=== PATIENT | female | born 1950 | race African-American/Black ===

== ENCOUNTER 2018-08-13 18:08 | Emergency (ER) | payer OTHER ==
[~2018-08-13] VITALS: Ht 172.7 cm; Wt 98.0 kg
[~2018-08-13 18:08] MED LIST: ATENOLOL PO; ATOR20TA65 PO; BENZONATE PO; BUSPIRONE PO; FLUOXETINE PO; FURO40TA5 PO; HYDR-1348 PO; HYDR-4005 PO; KDUR20 PO; LOV40 SQ; METO25TA6 PO; OMEP40CA34 PO; PRAMIPEXOLE PO; PREG50CA PO; VITAMIN D3 PO; WARFARIN PO; ZOLP10TA6 PO
[2018-08-13] MEDS ORDERED: DIAZEPAM 5 MG TABLET PO ONE (21:00)
[2018-08-13] MEDS ORDERED: KETOROLAC 30MG/ML VIAL IM ONE (21:00)
[2018-08-13] MEDS ORDERED: ACETAMINOPHEN 325MG TABLET PO ONE (21:00)
[2018-08-13] MEDS ORDERED: DIPHENHYDRAMINE 25MG CAPSULE PO ONE (21:00)
[2018-08-14 00:50] VITALS: BP 121/65
== END 2018-08-13 23:50 | disposition home or self-care (01) ==
LOC: ER 18:08
DX: G89.29 Other chronic pain (principal); M54.9 Dorsalgia, unspecified; M79.631 Pain in right forearm; M79.651 Pain in right thigh; F41.9 Anxiety disorder, unspecified; E11.9 Type 2 diabetes mellitus without complications; I11.9 Hypertensive heart disease without heart failure; M19.90 Unspecified osteoarthritis, unspecified site; R90.82 White matter disease, unspecified; Z86.73 Personal history of transient ischemic attack (TIA), and cerebral infarction without residual deficits; Z88.0 Allergy status to penicillin; Z79.899 Other long term (current) drug therapy
CPT/HCPCS: 70450; 72125; 72192; 73030; 73090; 73700; 96372; 99284; J1885; Q0163